=== PATIENT | female | born 1940 | race Caucasian/White ===

== ENCOUNTER → 2020-04-25 | Outpatient (REF) | payer MEDICARE | LOC: M LAB REF 11:48 | PROVIDERS: ATTEND Surgery | DX: I87.312 Chronic venous hypertension (idiopathic) with ulcer of left lower extremity (principal) | CPT/HCPCS: 11042; 88304; G0463 ==

== ENCOUNTER → 2020-06-05 | Outpatient (CLI) | payer MEDICARE ==
--- NOTE | 2020-08-13 07:41 | REP ---
LEFT LOWER EXTREMITY DUPLEX DOPPLER ARTERIAL ULTRASOUND: HISTORY: Left foot wound poorly healing. FINDINGS: Real time ultrasound evaluation and duplex Doppler interrogation of the left lower extremity arterial system is performed. There is moderate to severe diffuse plaquing throughout the left lower extremity arterial system. Distal calf arteries could not be visualized. There is a wound dressing at the ankle. There is suspected occlusion of the distal calf arteries. Biphasic wave forms are seen in the common femoral and superficial femoral arteries with monophasic wave forms in the popliteal artery and proximal calf arteries. VELOCITY CHART LEFT (cm/s) Femoral artery 101 Profunda 51 Proximal SFA 89 Mid-SFA 118 Distal SFA 87 Popliteal 66 Proximal YAYA 42 Tibioperoneal trunk 51 Proximal CARDING SUPERVISOR 16 MTDD
== END ==
LOC: M RAD 14:00
PROVIDERS: ATTEND Surgery
DX: L97.822 Non-pressure chronic ulcer of other part of left lower leg with fat layer exposed (principal)

== ENCOUNTER → 2022-06-26 | Outpatient (REF) | payer MEDICARE ==
[2022-06-26 18:04] LABS: TOTAL PROTEIN 7.5 GM/DL (6.4-8.2)
== END ==
LOC: M LAB REF 16:45
PROVIDERS: ATTEND Internal Medicine Nephrology
DX: N18.32 Chronic kidney disease, stage 3b (principal)

== ENCOUNTER → 2023-04-16 | Outpatient (REF) | payer MEDICARE ==
[2023-04-16 18:03] LABS: CREATININE,RANDOM URINE 37.2 MG/DL
[2023-04-16 18:06] LABS: TOTAL PROTEIN,RANDOM URINE < 6.0 MG/DL (0.0-14.0)
== END ==
LOC: M LAB REF 16:59
PROVIDERS: ATTEND Internal Medicine Nephrology
DX: N18.32 Chronic kidney disease, stage 3b (principal)